=== PATIENT | female | born 1950 | race Caucasian/White ===

== ENCOUNTER → 2024-01-09 08:41 | Outpatient (REF) | payer MEDICARE, OTHER, SELFPAY | LOC: WDC 08:41 | PROVIDERS: ATTENDING PHYSICIAN Obstetrics & Gynecology Gynecology; FAMILY PHYSICIAN Family Medicine | DX: Z12.31 Encounter for screening mammogram for malignant neoplasm of breast (principal) | CPT/HCPCS: 77063; 77067 ==

== ENCOUNTER → 2024-04-26 08:23 | Outpatient (REF) | payer MEDICARE, OTHER, SELFPAY | LOC: WDC 08:23 | PROVIDERS: ATTENDING PHYSICIAN Obstetrics & Gynecology Gynecology; FAMILY PHYSICIAN Family Medicine | DX: N63.10 Unspecified lump in the right breast, unspecified quadrant (principal); N64.59 Other signs and symptoms in breast | CPT/HCPCS: 76642 ==

== ENCOUNTER → 2024-05-08 14:06 | Outpatient (REF) | payer MEDICARE, OTHER, SELFPAY | LOC: CLAB 14:06 | PROVIDERS: ATTENDING PHYSICIAN Surgery | DX: C50.411 Malignant neoplasm of upper-outer quadrant of right female breast (principal) | CPT/HCPCS: 88305; 88341; 88342; 88360 ==

== ENCOUNTER → 2024-05-16 10:35 | Outpatient (REF) | payer MEDICARE, OTHER, SELFPAY ==
[2024-05-16 11:56] LABS: Blood Urea Nitrogen 8 mg/dl (7-17)
== END ==
LOC: REG 10:35
PROVIDERS: ATTENDING PHYSICIAN Surgery; FAMILY PHYSICIAN Family Medicine
DX: Z01.818 Encounter for other preprocedural examination (principal)
CPT/HCPCS: 36415; 82565; 84520

== ENCOUNTER → 2024-05-18 14:11 | Outpatient (REF) | payer MEDICARE, OTHER, SELFPAY | LOC: RAD 14:11 | PROVIDERS: ATTENDING PHYSICIAN Surgery; FAMILY PHYSICIAN Family Medicine | DX: C50.919 Malignant neoplasm of unspecified site of unspecified female breast (principal) | CPT/HCPCS: 71260; 74177; Q9967 ==

== ENCOUNTER → 2024-05-21 08:25 | Outpatient (REF) | payer MEDICARE, OTHER, SELFPAY | LOC: RAD 08:25 | PROVIDERS: ATTENDING PHYSICIAN Surgery; FAMILY PHYSICIAN Family Medicine | DX: C50.919 Malignant neoplasm of unspecified site of unspecified female breast (principal) | CPT/HCPCS: 78306; A9503 ==

== ENCOUNTER → 2024-05-29 09:49 | Outpatient (REF) | payer MEDICARE, OTHER, SELFPAY ==
[2024-05-29 10:10] VITALS: BP 145/82; BP_SYST 109
[2024-05-29 10:59] VITALS: BP 137/87
[2024-05-29 11:24] LABS: Body Fluid pH 7.45
[2024-05-29 11:37] LABS: Body Fluid Glucose 121 mg/dl; Body Fluid LDH 237 U/L; Body Fluid Protein 4.1 g/dl
[2024-05-29 12:00] LABS: Body Fluid WBC 1348 /CUMM
[2024-05-29 12:01] LABS: Body Fluid Mononuclear 99.5 %; Body Fluid Polymorphonuclear 0.5 %
[2024-05-29 12:06] LABS: Body Fluid Second Tech CF
== END ==
LOC: RADI 09:49
PROVIDERS: ATTENDING PHYSICIAN Internal Medicine Critical Care Medicine; FAMILY PHYSICIAN Family Medicine
DX: J90 Pleural effusion, not elsewhere classified (principal)
CPT/HCPCS: 88305; 32555; 71045; 80048; 82945; 83615; 83986; 84157; 85027; 85610; 85730; 87015; 87070; 87102; 87116; 87205; 87206; 88112; 89051; 93005

== ENCOUNTER 2024-06-11 06:15 | Day surgery (SDC) | payer MEDICARE, OTHER, SELFPAY ==
[2024-05-29 14:06] VITALS: BMI 28.9
[2024-06-11] VITALS (12 sets, daily range): BP systolic 106–146; BP diastolic 63–100; BMI 28.8; BMI 28.9
[2024-06-11] MEDS: DUONEB 3 ML INH ×2 (07:10→10:32)
--- NOTE | 2024-06-11 07:50 | PTCARENOTE ---
Stat portable CXR prior to ION procedure. Will monitor patient.
[2024-06-11] MEDS: TESSALON PERLES 200 MG PO (10:30)
--- NOTE | 2024-06-11 10:33 | SUR.PHASEI ---
patient received in pacu with continuous coughing, loose, non-productive, patient states normal for her to cough a lot, increased post procedure, positioned for comfort. HOB elevated, CXR done. supported arms for best chest volume. Denies pain,
Dr Johnson visits, reviewed assessment. Aware of sats and coughing
--- NOTE | 2024-06-11 11:14 | SUR.PHASEI ---
feels much better, rare coughing now, sats 90-[address] Johnson updated, okay to discharge to [facility]
--- NOTE | 2024-06-11 11:41 | SUR.PHASEI ---
discharge to [facility] - sats usually 90 - 95%, occasional dips to 85% - comfortable, TT Dr Johnson updated
== END 2024-06-11 12:37 | disposition home or self-care (01) ==
LOC: SDS 06:15
PROVIDERS: ATTENDING PHYSICIAN Internal Medicine Critical Care Medicine
DX: R59.0 Localized enlarged lymph nodes (principal); R91.1 Solitary pulmonary nodule; J90 Pleural effusion, not elsewhere classified; R93.89 Abnormal findings on diagnostic imaging of other specified body structures; R06.02 Shortness of breath; R91.8 Other nonspecific abnormal finding of lung field; J98.4 Other disorders of lung; J98.9 Respiratory disorder, unspecified; C7A.8 Other malignant neuroendocrine tumors; C34.12 Malignant neoplasm of upper lobe, left bronchus or lung; C77.8 Secondary and unspecified malignant neoplasm of lymph nodes of multiple regions
CPT/HCPCS: 31629; 31628; 31652; 31624; 31623; 31654; 31627; 88173; 88305; 71045; 76000; 87015; 87070; 87102; 87116; 87205; 88112; 88341; 88342; 94640; C1887

== ENCOUNTER → 2024-06-27 17:27 | Outpatient (REF) | payer MEDICARE, OTHER, SELFPAY | LOC: RCS 17:27 | PROVIDERS: ATTENDING PHYSICIAN Internal Medicine Critical Care Medicine; FAMILY PHYSICIAN Family Medicine | DX: R06.02 Shortness of breath (principal) | CPT/HCPCS: 93306 ==

== ENCOUNTER → 2024-12-11 09:21 | Outpatient (REF) | payer MEDICARE, OTHER, SELFPAY | LOC: RAD 09:21 | PROVIDERS: ATTENDING PHYSICIAN Internal Medicine Hematology & Oncology; FAMILY PHYSICIAN Family Medicine | DX: C50.911 Malignant neoplasm of unspecified site of right female breast (principal); C7A.8 Other malignant neuroendocrine tumors; Z13.820 Encounter for screening for osteoporosis; C7A.090 Malignant carcinoid tumor of the bronchus and lung; Z01.812 Encounter for preprocedural laboratory examination; R06.02 Shortness of breath; R79.1 Abnormal coagulation profile | CPT/HCPCS: 78306; A9503 ==

== ENCOUNTER → 2025-01-01 09:38 | Outpatient (REF) | payer MEDICARE, OTHER, SELFPAY | LOC: RAD 09:38 | PROVIDERS: ATTENDING PHYSICIAN Internal Medicine Hematology & Oncology; FAMILY PHYSICIAN Family Medicine | DX: C50.911 Malignant neoplasm of unspecified site of right female breast (principal); C7A.8 Other malignant neuroendocrine tumors; Z13.820 Encounter for screening for osteoporosis; C7A.090 Malignant carcinoid tumor of the bronchus and lung; Z01.812 Encounter for preprocedural laboratory examination; R06.02 Shortness of breath; R79.1 Abnormal coagulation profile | CPT/HCPCS: 71260; 74177; Q9967 ==